=== PATIENT | male | born 1960 | race Caucasian/White ===

== ENCOUNTER 2017-08-28 22:10 | Emergency (ER) | payer BC ==
[2017-08-28] MEDS ORDERED: IBUPROFEN 600 MG TAB PO ONE (22:22)
--- NOTE | 2017-08-28 22:28 | EDPHY ---
H & P Stated Complaint: DEFORMED RIGHT FINGER AFTER FALL WHILE KICKING BALL Time Seen by Provider: 08/28/17 22:19 HPI/ROS: Chief Complaint: Right 4th finger injury HPI: A 57-year-old male was playing with his dog this evening when he kicked the ball he slipped and fell landed on his right hand. He jammed his right ring finger and felt a pop. He has noticed a deformity in the distal phalanx. No numbness or weakness. No lacerations. He did not hit his head. No loss of conscious. Physical Exam: General: Awake, alert, no acute distress Right hand: The distal phalanx of his right 4th finger is deformed with 5 ulnar deviation. Cap refills less than 2 sec. There is no laceration. Sensations intact medial laterally. Skin: No rash - Personal History Current Tetanus/Diphtheria Vaccine: Yes Tetanus Vaccine Date: 06/2017 - Medical/Surgical History Hx Asthma: No Hx Chronic Respiratory Disease: No Hx Diabetes: No Hx Cardiac Disease: No Hx Renal Disease: No Hx Cirrhosis: No Hx Alcoholism: No Hx HIV/AIDS: No Hx Splenectomy or Spleen Trauma: No Other PMH: fx l arm/fingers/inj l knee. HTN, HYPERCHOLESTEROL - Social History Smoking Status: Never smoked Constitutional: Initial Vital Signs Temperature (C) 36.4 C 08/28/17 22:12 Heart Rate 90 08/28/17 22:12 Respiratory Rate 20 08/28/17 22:12 Blood Pressure 140/92 H 08/28/17 22:12 O2 Sat (%) 94 08/28/17 22:12 O2 Delivery Mode Room Air Allergies/Adverse Reactions: No Known Allergies Allergy (Unverified 08/02/16 09:53) Home Medications: Medication Instructions Recorded Lisinopril 5 mg PO DAILY #30 tablet 08/02/16 No Known Meds 08/02/16 SIMVASTATIN 08/28/17 Medical Decision Making - Diagnostics Imaging Results: Imaging Impressions Finger X-Ray 08/28/17 22:22 Impression: Questionable punctate avulsion fragment near the DIP joint, with no joint malalignment. Imaging: I viewed and interpreted images myself Procedures: Procedure: Finger Dislocation reduction. The right 4th distal phalanx was reduced in the usual fashion without complications. Post reduction the patient's neurovascular exam is normal. Post reduction x-ray demonstrates reduction of the joint to the anatomic position. The procedure was performed by myself. ED Course/Re-evaluation: Patient with a distal phalanx dislocation. Reduced by me. Postreduction x-ray as noted. Patient was placed in a volar aluminum foam finger splint with good immobility. He is comfortable. Capillary refills less than 2 sec. He has been referred follow up with Hand surgery. - Data Points Medications Given: Discontinued Medications Ibuprofen (Motrin) 600 mg PO EDNOW ONE Stop: 08/28/17 22:23 Last Admin: 08/28/17 22:37 Dose: Not Given Departure - Departure Disposition: Home, Routine, Self-Care Clinical Impression: Finger dislocation Condition: Good Instructions: Finger Dislocation (ED) Additional Instructions: Follow up with Dr. Rodriguez, hand surgery, for re-evaluation in 4-5 days. May alternate ibuprofen with acetaminophen as needed for pain. Keep the splint in place until followed up by Hand surgery. Return for increasing pain, numbness, discoloration, or any other concerns. Referrals: Wellington Mancuso MD [Primary Care Provider] - As per Instructions Vijaya Rodriguez MD [Medical Doctor] - As per Instructions
[2017-08-28 23:12] VITALS: BP 131/76; PULSE 73; RESP 16; TEMP 98.1; O2SAT 97
== END 2017-08-28 23:12 | disposition home or self-care (01) ==
PROC: 0RSWXZZ Reposition Right Finger Phalangeal Joint, External Approach (ICD-10-PCS; principal; 2017-08-28)
DX: S63.294A Dislocation of distal interphalangeal joint of right ring finger, initial encounter (principal); I10 Essential (primary) hypertension; W21.89XA Striking against or struck by other sports equipment, initial encounter; Y93.89 Activity, other specified
CPT/HCPCS: L3925